=== PATIENT | female | born 1980 | race Two or more races ===

== ENCOUNTER 2024-12-04 09:21 | Outpatient (RCR) | payer MEDICAID, SELFPAY ==
--- NOTE | 2024-12-04 10:00 | XR_ITS ---
Examination: ADOLFO, hepatobiliary radioisotope scan Gallbladder ejection fraction study. Date and time of exam: November 23, 2024 0945 hrs. Indications: Abdominal cramping beginning 5 years ago with nausea vomiting Technique: 6.0 mCi of 99M Hepatolite administered. Serial imaging then obtained from immediate through 60 minutes. 1.8 mcg selective catheter Kinevac administered for gallbladder ejection fraction study. Findings: Radioisotope activity within the liver is reasonably homogenous. Gallbladder, common bile duct small bowel activity noted Impression: Gallbladder activity Abnormal gallbladder ejection fraction, 18%, normal greater than 35%
[2024-12-04 10:03] LABS: HCG Qualitative,Urine Negative
== END 2024-12-09 23:59 | disposition home or self-care (01) ==
LOC: SNUC 09:21
PROVIDERS: PCP Family Medicine; Referring Provider Physician Assistant Medical; Visit Provider Physician Assistant Medical
DX: R93.89 Abnormal findings on diagnostic imaging of other specified body structures (principal); Z32.00 Encounter for pregnancy test, result unknown
CPT/HCPCS: 78227; 81025; A9537; J2805